=== PATIENT | female | born 1940 | race Caucasian/White ===

== ENCOUNTER 2017-02-12 13:35 | Emergency (ER) | payer OTHER ==
[2017-02-12 14:48] VITALS: BP 122/63; PULSE 73; TEMP 97.9; BMI 27.4
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
== END 2017-02-12 15:19 | disposition home or self-care (01) ==
LOC: FER 13:35 → EDBD 13:35 → FER 15:19
DX: Z76.0 Encounter for issue of repeat prescription (principal); I10 Essential (primary) hypertension; E11.9 Type 2 diabetes mellitus without complications; E78.00 Pure hypercholesterolemia, unspecified
CPT/HCPCS: 99281-25

== ENCOUNTER 2017-05-27 13:39 | Inpatient (IN) | payer MEDICARE, OTHER ==
[2017-05-27 13:57] VITALS: BMI 27.9
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
[2017-05-27 16:12] LABS: BASO % 0.4 % (0-2.0); EOS % 2.2 % (0-4.5); HEMATOCRIT 40.2 % (32.4-45.2); HEMOGLOBIN 13.6 GM/dL (10.7-15.3); LYMPH % 25.8 % (8-40); MCH 30.5 pg (25.7-33.7); MEAN CELL VOLUME 89.9 fl (80-96); MEAN PLT VOLUME 10.8 fl (7.5-11.1); MONO % 6.1 % (3.8-10.2); NEUT % 65.5 % (42.8-82.8); PLATELET COUNT 130 K/MM3 (134-434); RBC 4.47 M/mm3 (3.60-5.2); RDW 12.8 % (11.6-15.6); WHITE BLOOD COUNT 7.7 K/mm3 (4.0-10.0)
[2017-05-27 16:23] LABS: INR 1.06 (0.82-1.09)
[2017-05-27 16:33] LABS: ALBUMIN 3.7 g/dl (3.4-5.0); ANION GAP 8 (8-16); BILIRUBIN,TOTAL 0.5 mg/dL (0.2-1.0); BLOOD UREA NITROGEN 10 mg/dL (7-18); CALCIUM 9.1 mg/dL (8.5-10.1); CHLORIDE 107 mmol/L (98-107); CO2 27 mmol/L (21-32); CREATININE 0.6 mg/dL (0.55-1.02); GLUCOSE,RANDOM 107 mg/dL (74-106); SGOT/AST 16 U/L (15-37); SGPT/ALT 20 U/L (12-78); SODIUM 142 mmol/L (136-145); TOT PROT 7.5 g/dl (6.4-8.2)
[2017-05-27 16:41] LABS: ALK PHOS 108 U/L (45-117); N-TERMINAL BNP 2027.35 pg/ml (5-450)
[2017-05-27] MEDS ORDERED: ASPIRIN 325 MG ENTERIC COATED TABLET (FP) PO ONE (18:00)
[2017-05-27] MEDS ORDERED: ASPIRIN 81 MG CHEWABLE TABLETS PO SCH (18:00)
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
[2017-05-27] MEDS ORDERED: MECLIZINE HCL 12.5 MG TABLET PO PRN (18:17)
[2017-05-27] MEDS ORDERED: ASPIRIN 325 MG TABLET ONE (18:23)
[2017-05-27] MEDS: METOPROLOL SUCCINATE 25 MG TAB.SR.24H (FP) PO SCH (18:29)
[2017-05-27] MEDS ORDERED: APIXABAN 5 MG TABLET PO SCH (22:00)
[2017-05-27] MEDS ORDERED: ENOXAPARIN NA (PORCINE) 80 MG/0.8 ML DISP.SYRIN SQ ONE (22:11)
[2017-05-27] MEDS: ATORVASTATIN CA 10 MG TABLET (FP) PO SCH (22:25)
[2017-05-27] MEDS: ENOXAPARIN NA (PORCINE) 80 MG/0.8 ML DISP.SYRIN SQ SCH (22:25)
[2017-05-27] MEDS: INSULIN SLIDING SCALE (NOVOLOG) 1 VIAL SQ SCH (22:26)
[2017-05-28] MEDS: INSULIN SLIDING SCALE (NOVOLOG) 1 VIAL SQ SCH ×4 (06:30→21:00)
[2017-05-28 09:06] LABS: ANION GAP 10 (8-16); CALCIUM 9.3 mg/dL (8.5-10.1); CHLORIDE 105 mmol/L (98-107); CO2 27 mmol/L (21-32); SODIUM 142 mmol/L (136-145)
[2017-05-28 09:11] LABS: ALBUMIN 3.5 g/dl (3.4-5.0); ALK PHOS 100 U/L (45-117); BILIRUBIN,TOTAL 0.6 mg/dL (0.2-1.0); BLOOD UREA NITROGEN 10 mg/dL (7-18); CREATININE 0.6 mg/dL (0.55-1.02); GLUCOSE,RANDOM 114 mg/dL (74-106); PHOSPHOROUS 3.8 mg/dL (2.5-4.9); SGPT/ALT 19 U/L (12-78); TOT PROT 7.3 g/dl (6.4-8.2)
[2017-05-28 09:15] LABS: BASO % 0.8 % (0-2.0); HEMOGLOBIN 14.1 GM/dL (10.7-15.3); LYMPH % 34.1 % (8-40); MAGNESIUM 2.1 mg/dL (1.8-2.4); MCH 29.8 pg (25.7-33.7); MCHC 32.7 g/dl (32.0-36.0); MEAN CELL VOLUME 91.2 fl (80-96); MEAN PLT VOLUME 10.6 fl (7.5-11.1); MONO % 7.1 % (3.8-10.2); PLATELET COUNT 122 K/MM3 (134-434); POTASSIUM 4.1 mmol/L (3.5-5.1); RBC 4.71 M/mm3 (3.60-5.2); RDW 12.8 % (11.6-15.6); WHITE BLOOD COUNT 7.8 K/mm3 (4.0-10.0)
[2017-05-28 09:16] LABS: SGOT/AST 26 U/L (15-37)
--- NOTE | 2017-05-28 09:20 | EKG ---
Test Reason : Blood Pressure : / mmHG Vent. Rate : 106 BPM Atrial Rate : 288 BPM P-R Int : 000 ms QRS Dur : 084 ms QT Int : 346 ms P-R-T Axes : 000 027 038 degrees QTc Int : 459 ms ATRIAL FIBRILLATION WITH RAPID VENTRICULAR RESPONSE ABNORMAL ECG NO PREVIOUS ECGS AVAILABLE Confirmed by JUNIE GAMBOA, MACARENA ([id number]) on 05/28/2017 9:20:13 AM Referred By: Confirmed By:MACARENA ZAMAN MD
[2017-05-28] MEDS: ENOXAPARIN NA (PORCINE) 80 MG/0.8 ML DISP.SYRIN SQ SCH (09:34)
[2017-05-28] MEDS: METOPROLOL SUCCINATE 25 MG TAB.SR.24H (FP) PO SCH (09:34)
--- NOTE | 2017-05-28 10:41 | CONSULT ---
Admitting History and Physical - Primary Care Physician PCP: Marc Canada - Admission History of Present Illness: Per EMR: This is a 77 year old female with PMHx of NIDDM, HTN, hyperlipidemia, cardiac cath 1 year ago in [place] (no PCI per patient), cardiac arrhythmia diagnosed 1 year ago in [place], hysterectomy, hernia repair, cholecystectomy, who was sent in by branch maker for new onset a.fib with RVR. Intermittent vomiting x2 months - Possible diabetes induced gastroparesis - Patient reports it is on and off with no clear pattern. She also reports sometimes rice gets stuck in her throat - Consider CTAP if no improvement - Swallow evaluation History Source: Patient, Family Member, Medical Record Limitations to Obtaining History: Language Barrier - Smoking History Smoking history: Former smoker Have you smoked in the past 12 months: No Aproximately how many cigarettes per day: 0 If you are a former smoker, when did you quit?: many years ago - Alcohol/Substance Use Hx Alcohol Use: No History - Admission Reason For Visit: ATRIAL FIBRILATION - Diagnostics X-ray: Report Reviewed CT Scan: Report Reviewed - General Mental Status: Alert and Oriented, Awake and Alert, Able to Follow Commands Attention: Intact Ability to Follow Directions: Excellent Head/Neck Control: WFL - Hearing Hearing: Normal Hearing Aide: No With Patient: No Speech Evaluation - Communication Primary Language: LAO Communication: Yes: Simple Responses, Language Barrier Oral Expression Ability: Yes: No Impairment (Good historian) - Speech Production Able to Make Needs Known: Yes: WNL Intelligibility: Yes: WNL - Swallow Evaluation/Bedside Assessment Current Nutritional Intake: Regular, Thin Liquids Oral Secretions: Yes: WFL Dentition: Yes: Adequate Facial Symmetry at Rest: Symmetrical Facial Symmetry on Retraction: Symmetrical Facial Movement: Controlled Sensation: Normal Against Resistance Opening: Normal Against Resistance Closing: Normal Pucker Lips: Normal Smile: Normal Lingual Movement: Normal, Symmetric Lingual Speed of Movement: Normal Lingual Movement Strgth Against Opposition: Normal Lingual Movement Characteristics: Normal Velopharyngeal Movement: Normal Laryngeal Elevation: WFL Laryngeal Movement: Able to Palpate Rate of Intake: WFL Bolus Size: WFL Labial Seal: WFL Chewing: WFL Oral Prep Time: WFL A-P Transit: WFL Pocketing: None Timing of Swallow: WFL Coughing/Throat Clear: No Change in Voice: No Recommendations - Speech Evaluation, Impression/Plan Impression: Pt reports h/o difficulty eating white rice only, seemingly sticking in esophagus with vomiting resulting. She feels she can not breathe when this occurs.This started 6 months ago, and she was scheduled to see GI in [place], but came [place] the [place]. She denies progression of symptoms, or difficulty with any other food or liquid. No h/o PNA, coughing,bronchitis. Limited appetite. eats mainly cereal. 30lb weight loss in 4-5 months. IMP: Jeri-pharyngeal swallowing stages overtly intact. Voice euphonic.Esophageal Dysphagia r/o stricture,schatski's ring, impaired motility, etc Also c/o abd pain radiating to back. - Dysphagia Impressions/Plan *Silent aspiration: cannot be R/O at bedside Dysphagia Treatment Plan: Elevate HOB during feed (and for 1 hour after meals) Recommendations: GI Consult, Other (Alternate solids with liquids.) - Recommendations Diet Consistency: Regular (NO RICE) Medication Administration: Whole with water Liquids: Thin Liquids
--- NOTE | 2017-05-28 11:30 | PN ---
Progress Note, Physician Chief Complaint: CHART AND RECORDS REVIEWED PATIENT AWAKE COMFORTABLE IN ICU TELE - Current Medication List Current Medications: Active Medications Atorvastatin Calcium (Lipitor -) 10 mg PO HS [facility] Last Admin: 05/27/17 22:25 Dose: 10 mg Enoxaparin Sodium (Lovenox -) 80 mg SQ BID [facility] Last Admin: 05/28/17 09:34 Dose: 80 mg Influenza Virus Vaccine Quadrival (Flulaval Quad [id number]) 60 mcg IM .ONCE ONE Stop: 05/28/17 06:27 Insulin Aspart (Novolog Vial Sliding Scale -) 1 vial SQ ACHS [facility] PRN Reason: Protocol Last Admin: 05/28/17 06:30 Dose: Not Given Meclizine HCl (Antivert -) 12.5 mg PO BID PRN PRN Reason: VERTIGO Metoprolol Succinate (Toprol Xl -) 12.5 mg PO DAILY [facility] Last Admin: 05/28/17 09:34 Dose: 12.5 mg Pneumococcal 13-Valent Conj Vacc (Prevnar 13 Syringe -) 0.5 ml IM .ONCE ONE Stop: 05/28/17 06:28 - Objective Vital Signs: Vital Signs Temperature 97.8 F 05/28/17 10:00 Pulse Rate 83 05/28/17 10:00 Respiratory Rate 18 05/28/17 10:00 Blood Pressure 133/77 05/28/17 10:00 O2 Sat by Pulse Oximetry (%) 100 05/28/17 09:00 Constitutional: Yes: Mild Distress Eyes: Yes: WNL HENT: Yes: WNL Neck: Yes: WNL Cardiovascular: Yes: Pulse Irregular Respiratory: Yes: WNL, On Nasal O2, Poor Air Entry, SOB Gastrointestinal: Yes: WNL Genitourinary: Yes: WNL Musculoskeletal: Yes: WNL Extremities: Yes: WNL Edema: No Peripheral Pulses WNL: Yes Integumentary: Yes: WNL Wound/Incision: Yes: Clean/Dry Neurological: Yes: WNL ...Motor Strength: WNL Psychiatric: Yes: WNL Labs: CBC, BMP 05/28/17 07:00 05/28/17 07:00 INR, PTT INR 1.06 (0.82-1.09) 05/27/17 15:45 Problem List - Problems (1) Afib Code(s): I48.91 - UNSPECIFIED ATRIAL FIBRILLATION Qualifiers: Atrial fibrillation type: persistent Qualified Code(s): I48.1 - Persistent atrial fibrillation (2) Diabetes mellitus Code(s): E11.9 - TYPE 2 DIABETES MELLITUS WITHOUT COMPLICATIONS Qualifiers: Diabetes mellitus type: type 2 Diabetes mellitus complication status: with unspecified complications (3) Dizziness Code(s): R42 - DIZZINESS AND GIDDINESS (4) Elevated troponin Code(s): R74.8 - ABNORMAL LEVELS OF OTHER SERUM ENZYMES (5) Hyperlipidemia Code(s): E78.5 - HYPERLIPIDEMIA, UNSPECIFIED (6) Hypertension Code(s): I10 - ESSENTIAL (PRIMARY) HYPERTENSION Qualifiers: Hypertension type: essential hypertension Qualified Code(s): I10 - Essential (primary) hypertension Assessment/Plan TELE ICU MONITOR CARDIAC FUNCTION CARDIO/PULM EVAL IVF RATE CONTROL AC? ON ASA 02 SUPPORT
--- NOTE | 2017-05-28 13:39 | CON.CARD ---
Consult Consult Specialty:: Cardiology Referred by:: Dread Reason for Consultation:: afib - History of Present Illness Chief Complaint: sent in for af rvr History of Present Illness: She is a 77 year old female with PMHx of NIDDM, HTN, hyperlipidemia, cardiac cath 1 year ago in [place] told normal coronaries, unknown cardiac arrhythmia diagnosed 1 year ago in [place], hysterectomy, hernia repair, cholecystectomy, who was sent in by her investment banking manager in Dr Canada's office for new onset atrial fibrillation with RVR. No chest pain, sob, orthopnea, pnd or edema. Noted with minimally elevated troponin and normal CPK. No ecg changes. Echo 05/28/17: TDS mild decreased EF nl valves. - History Source History Provided By: Patient, Family Member, Medical Record - Alcohol/Substance Use Hx Alcohol Use: No - Smoking History Smoking history: Former smoker Have you smoked in the past 12 months: No Aproximately how many cigarettes per day: 0 If you are a former smoker, when did you quit?: many years ago Home Medications - Allergies Allergies/Adverse Reactions: Allergies Allergy/AdvReac Type Severity Reaction Status Date / Time aspirin Allergy palpitaions/upset Verified 05/08/15 14:17 stomach Penicillins Allergy Verified 05/27/17 13:53 - Home Medications Home Medications: Ambulatory Orders Glipizide 5 mg PO DAILY 08/16/11 Metformin HCl [Glucophage -] 500 mg PO DAILY 01/15/13 Simvastatin [Zocor -] 10 mg PO DAILY 01/15/13 Glipizide [Glucotrol -] 5 mg PO DAILY #30 tab 02/12/17 Irbesartan/Hydrochlorothiazide [Irbesartan-Hctz 300-12.5 mg Tb] 1 each PO DAILY #30 tab 02/12/17 Metformin HCl [Metformin HCl ER] 500 mg PO DAILY #30 tab 02/12/17 Simvastatin [Zocor -] 20 mg PO HS #30 tab 02/12/17 Vital Signs: Vital Signs Temperature 98.1 F 05/28/17 12:00 Pulse Rate 90 05/28/17 12:00 Respiratory Rate 19 05/28/17 12:00 Blood Pressure 121/82 05/28/17 12:00 O2 Sat by Pulse Oximetry (%) 100 05/28/17 09:00 Constitutional: Yes: No Distress, Calm Eyes: Yes: Conjunctiva Clear, EOM Intact HENT: Yes: Atraumatic, Normocephalic Neck: Yes: Supple, Trachea Midline Respiratory: Yes: CTA Bilaterally Gastrointestinal: Yes: Normal Bowel Sounds, Soft Cardiovascular: Yes: Tachycardia, Pulse Irregular JVD: No Carotid Bruit: No PMI: Non-Displaced Heart Sounds: Yes: S2 Edema: No Peripheral Pulses WNL: Yes - Other Data Labs, Other Data: CBC, BMP 05/28/17 07:00 05/28/17 07:00 INR, PTT INR 1.06 (0.82-1.09) 05/27/17 15:45 Troponin, BNP 05/27/17 05/27/17 05/28/17 15:45 21:40 04:08 Troponin I 0.08 H 0.07 H 0.07 H B-Natriuretic Peptide 2027.35 H Troponin, BNP 05/27/17 05/27/17 05/28/17 15:45 21:40 04:08 Troponin I 0.08 H 0.07 H 0.07 H B-Natriuretic Peptide 2027.35 H Imaging - Results Chest X-ray: Report Reviewed (cm delfina) EKG: Report Reviewed (af rvr nssttw changes.) Problem List - Problems (1) Afib Assessment/Plan: She has a mildly decreased EF 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 Increase metoprolol to 25 bid short acting for now, increase as tolerated by bp and hr. Stop lovenox start eliquis 5 mg bid. Code(s): I48.91 - UNSPECIFIED ATRIAL FIBRILLATION Qualifiers: Atrial fibrillation type: persistent Qualified Code(s): I48.1 - Persistent atrial fibrillation (2) Elevated troponin Assessment/Plan: This is a nonischemic pattern of troponin, and given her recent cath will treat for TIC and reassess in a few months. No need for ischemia workup at this point. ACEI when stable. Code(s): R74.8 - ABNORMAL LEVELS OF OTHER SERUM ENZYMES
[2017-05-28] MEDS ORDERED: PNEUMOC 13-VAL CONJ-DIP CRM/PF 0.5 ML DISP.SYRIN IM ONE (14:45)
[2017-05-28] MEDS: METOPROLOL TARTRATE 25 MG TABLET (FP) PO SCH ×2 (14:53→21:46)
[2017-05-28] MEDS ORDERED: FLU VACCINE QUAD 60 MCG/0.5 ML (MDV 17-18) IM ONE (15:00)
--- NOTE | 2017-05-28 15:45 | CON.PULM ---
Consult Consult Specialty:: PULMONARY Referred by:: Dr. Canada Reason for Consultation:: shortness of breath - History of Present Illness Chief Complaint: palpitations History of Present Illness: 77yo female with h/o HTN, DM, hyperlipidemia, possible cardiac arrythmia 1 year ago and cardiac catheterization with normal coronaries who was sent from the cardiology office after being found in rapid atrial fibrillation. Pt does report symptomatic palpitations with associated shortness of breath. No chest pain, nausea or diaphoresis. No recent illnesses, no fevers, chills. No sick contacts. Denies any pulmonary history, she is a never smoker, no significant 2nd hand smoke, worked in a restaurant. - History Source History Provided By: Patient, Family Member, Medical Record Limitations to Obtaining History: Language Barrier - Past Medical History Cardio/Vascular: Yes: HTN, Hyperlipdemia Endocrine: Yes: Diabetes Mellitus - Alcohol/Substance Use Hx Alcohol Use: No - Smoking History Smoking history: Former smoker Have you smoked in the past 12 months: No Aproximately how many cigarettes per day: 0 If you are a former smoker, when did you quit?: many years ago Home Medications - Allergies Allergies/Adverse Reactions: Allergies Allergy/AdvReac Type Severity Reaction Status Date / Time aspirin Allergy palpitaions/upset Verified 05/08/15 14:17 stomach Penicillins Allergy Verified 05/27/17 13:53 - Home Medications Home Medications: Ambulatory Orders Glipizide 5 mg PO DAILY 08/16/11 Metformin HCl [Glucophage -] 500 mg PO DAILY 01/15/13 Simvastatin [Zocor -] 10 mg PO DAILY 01/15/13 Glipizide [Glucotrol -] 5 mg PO DAILY #30 tab 02/12/17 Irbesartan/Hydrochlorothiazide [Irbesartan-Hctz 300-12.5 mg Tb] 1 each PO DAILY #30 tab 02/12/17 Metformin HCl [Metformin HCl ER] 500 mg PO DAILY #30 tab 02/12/17 Simvastatin [Zocor -] 20 mg PO HS #30 tab 02/12/17 Review of Systems - Review of Systems Constitutional: denies: Chills, Fever Eyes: denies: Recent Change in Vision HENT: denies: Nasal Congestion, Throat Pain Neck: denies: Stiffness, Tenderness Cardiovascular: reports: Palpitations, Shortness of Breath. denies: Chest Pain , Edema Respiratory: denies: Cough, Hemoptysis, Wheezing Gastrointestinal: denies: Abdominal Pain, Nausea, Vomiting Genitourinary: denies: Dysuria, Hematuria Neurological: denies: Dizziness, Headache Endocrine: denies: Unexplained Weight Gain, Unexplained Weight Loss Physical Exam Vital Sings: Vital Signs Temperature 98.1 F 05/28/17 12:00 Pulse Rate 90 05/28/17 12:00 Respiratory Rate 19 05/28/17 13:00 Blood Pressure 121/82 05/28/17 12:00 O2 Sat by Pulse Oximetry (%) 100 05/28/17 13:00 Constitutional: Yes: Calm Eyes: Yes: Conjunctiva Clear, EOM Intact HENT: Yes: Atraumatic, Normocephalic Neck: Yes: Supple, Trachea Midline Cardiovascular: Yes: Pulse Irregular Respiratory: Yes: Diminished (decreased breath sounds at the bases) ...Clubbing: No Gastrointestinal: Yes: Normal Bowel Sounds, Soft. No: Tenderness Neurological: Yes: Alert, Oriented Labs: CBC, BMP 05/28/17 07:00 05/28/17 07:00 Imaging - Results Chest X-ray: Report Reviewed, Image Reviewed (cardiomegaly, no infiltrates) Problem List - Problems (1) Afib Code(s): I48.91 - UNSPECIFIED ATRIAL FIBRILLATION Qualifiers: Atrial fibrillation type: persistent Qualified Code(s): I48.1 - Persistent atrial fibrillation (2) Diabetes mellitus Code(s): E11.9 - TYPE 2 DIABETES MELLITUS WITHOUT COMPLICATIONS (3) Elevated troponin Code(s): R74.8 - ABNORMAL LEVELS OF OTHER SERUM ENZYMES (4) Hyperlipidemia Code(s): E78.5 - HYPERLIPIDEMIA, UNSPECIFIED (5) Hypertension Code(s): I10 - ESSENTIAL (PRIMARY) HYPERTENSION Assessment/Plan Atrial Fibrillation HTN DM Hyperlipidemia - rate control - continue anticoagulation - f/u echocardiogram - cardiology f/u - O2 as needed Thank you for this consult Neeraj Bergman MD
[2017-05-28] MEDS ORDERED: ACETAMINOPHEN 325 MG TABLET (FP) PO ONE (17:20)
[2017-05-28] MEDS: ATORVASTATIN CA 10 MG TABLET (FP) PO SCH (21:46)
[2017-05-28] MEDS: APIXABAN 5 MG TABLET PO SCH (21:48)
[2017-05-29] MEDS: INSULIN SLIDING SCALE (NOVOLOG) 1 VIAL SQ SCH ×4 (06:20→21:57)
[2017-05-29] MEDS: APIXABAN 5 MG TABLET PO SCH ×3 (10:08→22:04)
[2017-05-29] MEDS: METOPROLOL TARTRATE 25 MG TABLET (FP) PO SCH ×2 (10:09→22:05)
--- NOTE | 2017-05-29 10:52 | PN ---
Progress Note, NON LICENSED OPERATOR - Note Progress Note: c/o Vertigo. Tolerating diet without difficulty. Esophageal dysphagia suspected. No vomiting reported. Avoid rice for now. Alternate solids with liquids to improve esophageal emptying. Selected Entries 05/29/17 05/29/17 05/29/17 02:34 05:37 10:00 Temperature 98.1 F 98.1 F 98.1 F
--- NOTE | 2017-05-29 14:16 | PN ---
Progress Note, Physician Chief Complaint: still with episodic dizziness. tele rate controlled Afib. 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 No chest pain, sob, orthopnea, pnd or edema. Noted with minimally elevated troponin and normal CPK. No ecg changes. Echo 05/28/17: TDS mild decreased EF nl valves. - Current Medication List Current Medications: Active Medications Apixaban (Eliquis -) 5 mg PO BID [facility] Last Admin: 05/29/17 12:31 Dose: 5 mg Atorvastatin Calcium (Lipitor -) 10 mg PO HS [facility] Last Admin: 05/28/17 21:46 Dose: 10 mg Insulin Aspart (Novolog Vial Sliding Scale -) 1 vial SQ ACHS [facility] PRN Reason: Protocol Last Admin: 05/29/17 11:33 Dose: Not Given Meclizine HCl (Antivert -) 12.5 mg PO BID PRN PRN Reason: VERTIGO Metoprolol Tartrate (Lopressor -) 25 mg PO BID [facility] Last Admin: 05/29/17 10:09 Dose: 25 mg - Objective Vital Signs: Vital Signs Temperature 98.3 F 05/29/17 14:00 Pulse Rate 72 05/29/17 14:00 Respiratory Rate 18 05/29/17 14:00 Blood Pressure 124/62 05/29/17 14:00 O2 Sat by Pulse Oximetry (%) 100 05/29/17 09:00 Constitutional: Yes: No Distress Eyes: Yes: Conjunctiva Clear, EOM Intact HENT: Yes: Normocephalic Neck: Yes: Trachea Midline Cardiovascular: Yes: Pulse Irregular Respiratory: Yes: Regular, CTA Bilaterally Gastrointestinal: Yes: Normal Bowel Sounds, Soft Extremities: Yes: WNL Edema: No Peripheral Pulses WNL: Yes Labs: CBC, BMP 05/28/17 07:00 05/28/17 07:00 INR, PTT INR 1.06 (0.82-1.09) 05/27/17 15:45 Problem List - Problems (1) Afib Assessment/Plan: She has a mildly decreased EF 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 Increase metoprolol to 25 bid short acting for now, increase as tolerated by bp and hr. Stop lovenox start eliquis 5 mg bid. Code(s): I48.91 - UNSPECIFIED ATRIAL FIBRILLATION Qualifiers: Atrial fibrillation type: persistent Qualified Code(s): I48.1 - Persistent atrial fibrillation (2) Elevated troponin Assessment/Plan: This is a nonischemic pattern of troponin, and given her recent cath will treat for TIC and reassess in a few months. No need for ischemia workup at this point. ACEI when stable. will see as needed. follow as outpatient. Code(s): R74.8 - ABNORMAL LEVELS OF OTHER SERUM ENZYMES
--- NOTE | 2017-05-29 15:09 | PN ---
Progress Note (short form) - Note Progress Note: No CP or SOB. Intermittent dizziness. Rate controlled AFib. Intake & Output 05/26/17 05/27/17 05/28/17 05/29/17 23:59 23:59 23:59 23:59 Intake Total 170 10 Balance 170 10 Weight 173 lb 173 lb Last Vital Signs Temp Pulse Resp BP Pulse Ox 98.3 F 72 18 124/62 100 05/29/17 14:00 05/29/17 14:00 05/29/17 14:00 05/29/17 14:00 05/29/17 09:00 Active Medications Apixaban (Eliquis -) 5 mg PO BID [facility] Last Admin: 05/29/17 12:31 Dose: 5 mg Atorvastatin Calcium (Lipitor -) 10 mg PO HS [facility] Last Admin: 05/28/17 21:46 Dose: 10 mg Insulin Aspart (Novolog Vial Sliding Scale -) 1 vial SQ ACHS [facility] PRN Reason: Protocol Last Admin: 05/29/17 11:33 Dose: Not Given Meclizine HCl (Antivert -) 12.5 mg PO BID PRN PRN Reason: VERTIGO Metoprolol Tartrate (Lopressor -) 25 mg PO BID [facility] Last Admin: 05/29/17 10:09 Dose: 25 mg Constitutional: Yes: NAD Eyes: Yes: Conjunctiva Clear, EOM Intact HENT: Yes: Atraumatic, Normocephalic Neck: Yes: Supple, Trachea Midline Cardiovascular: Yes: Pulse Irregular Respiratory: Yes: Diminished breath sounds at the bases ...Clubbing: No Gastrointestinal: Yes: Normal Bowel Sounds, Soft. No: Tenderness Neurological: Yes: Alert, Oriented Labs: Laboratory Results - last 24 hr 05/28/17 05/28/17 05/28/17 05:23 12:09 16:42 POC Glucometer 120.44911 73.91874 89.56959 05/28/17 05/29/17 20:56 06:19 POC Glucometer 150.09238 135.97587 Problem List - Problems (1) Afib Code(s): I48.91 - UNSPECIFIED ATRIAL FIBRILLATION Qualifiers: Atrial fibrillation type: persistent Qualified Code(s): I48.1 - Persistent atrial fibrillation (2) Diabetes mellitus Code(s): E11.9 - TYPE 2 DIABETES MELLITUS WITHOUT COMPLICATIONS (3) Elevated troponin Code(s): R74.8 - ABNORMAL LEVELS OF OTHER SERUM ENZYMES (4) Hyperlipidemia Code(s): E78.5 - HYPERLIPIDEMIA, UNSPECIFIED (5) Hypertension Code(s): I10 - ESSENTIAL (PRIMARY) HYPERTENSION Assessment/Plan Atrial Fibrillation HTN DM Hyperlipidemia - rate control per Cardiology - Eliquis BID - O2 as needed Dr Rao
--- NOTE | 2017-05-29 19:24 | PN ---
Progress Note, Physician Chief Complaint: AWAKE ALERT FEELING BETTER - Current Medication List Current Medications: Active Medications Apixaban (Eliquis -) 5 mg PO BID [facility] Last Admin: 05/29/17 12:31 Dose: 5 mg Atorvastatin Calcium (Lipitor -) 10 mg PO HS [facility] Last Admin: 05/28/17 21:46 Dose: 10 mg Insulin Aspart (Novolog Vial Sliding Scale -) 1 vial SQ ACHS [facility] PRN Reason: Protocol Last Admin: 05/29/17 16:52 Dose: Not Given Meclizine HCl (Antivert -) 12.5 mg PO BID PRN PRN Reason: VERTIGO Metoprolol Tartrate (Lopressor -) 25 mg PO BID [facility] Last Admin: 05/29/17 10:09 Dose: 25 mg - Objective Vital Signs: Vital Signs Temperature 98.3 F 05/29/17 14:00 Pulse Rate 72 05/29/17 14:00 Respiratory Rate 18 05/29/17 14:00 Blood Pressure 124/62 05/29/17 14:00 O2 Sat by Pulse Oximetry (%) 100 05/29/17 09:00 Constitutional: Yes: Mild Distress Eyes: Yes: WNL HENT: Yes: WNL Neck: Yes: WNL Cardiovascular: Yes: Pulse Irregular Respiratory: Yes: WNL Gastrointestinal: Yes: WNL Genitourinary: Yes: WNL Musculoskeletal: Yes: WNL Extremities: Yes: WNL Edema: No Peripheral Pulses WNL: Yes Integumentary: Yes: WNL Wound/Incision: Yes: Clean/Dry Neurological: Yes: WNL ...Motor Strength: WNL Psychiatric: Yes: WNL Labs: CBC, BMP 05/28/17 07:00 05/28/17 07:00 INR, PTT INR 1.06 (0.82-1.09) 05/27/17 15:45 Problem List - Problems (1) Afib Code(s): I48.91 - UNSPECIFIED ATRIAL FIBRILLATION Qualifiers: Atrial fibrillation type: persistent Qualified Code(s): I48.1 - Persistent atrial fibrillation (2) Diabetes mellitus Code(s): E11.9 - TYPE 2 DIABETES MELLITUS WITHOUT COMPLICATIONS Qualifiers: Diabetes mellitus type: type 2 Diabetes mellitus complication status: with unspecified complications (3) Dizziness Code(s): R42 - DIZZINESS AND GIDDINESS (4) Elevated troponin Code(s): R74.8 - ABNORMAL LEVELS OF OTHER SERUM ENZYMES (5) Hyperlipidemia Code(s): E78.5 - HYPERLIPIDEMIA, UNSPECIFIED (6) Hypertension Code(s): I10 - ESSENTIAL (PRIMARY) HYPERTENSION Qualifiers: Hypertension type: essential hypertension Qualified Code(s): I10 - Essential (primary) hypertension Assessment/Plan DM STABLE AFIB CONTROLLED NO SIGNIFICANT ALARMS CONTINUE MEDS DC PLANNING AM
[2017-05-29] MEDS ORDERED: PT OWN MED DRAWER 7, Y5N ONE (22:02)
[2017-05-29] MEDS: ATORVASTATIN CA 10 MG TABLET (FP) PO SCH (22:06)
[2017-05-30] MEDS: METOPROLOL TARTRATE 25 MG TABLET (FP) PO SCH ×2 (09:29→22:13)
[2017-05-30] MEDS: APIXABAN 5 MG TABLET PO SCH ×2 (09:29→22:13)
[2017-05-30] MEDS: INSULIN SLIDING SCALE (NOVOLOG) 1 VIAL SQ SCH ×4 (09:32→22:13)
[2017-05-30] MEDS ORDERED: HEMOQUE TEST 1 EACH EACH ONE ×2 (11:50→17:14)
[2017-05-30] MEDS ORDERED: ACETAMINOPHEN 325 MG TABLET (FP) ONE (12:17)
--- NOTE | 2017-05-30 12:29 | PN ---
Progress Note (short form) - Note Progress Note: Still with dizziness and TORRES. No CP or SOB. AFib. Intake & Output 05/27/17 05/28/17 05/29/17 05/30/17 23:59 23:59 23:59 23:59 Intake Total 170 170 100 Balance 170 170 100 Weight 173 lb 173 lb Last Vital Signs Temp Pulse Resp BP Pulse Ox 98.2 F 84 18 105/77 100 05/29/17 22:00 05/30/17 12:25 05/30/17 12:25 05/30/17 12:25 05/30/17 07:31 Active Medications Apixaban (Eliquis -) 5 mg PO BID [facility] Last Admin: 05/30/17 09:29 Dose: 5 mg Atorvastatin Calcium (Lipitor -) 10 mg PO HS [facility] Last Admin: 05/29/17 22:06 Dose: 10 mg Insulin Aspart (Novolog Vial Sliding Scale -) 1 vial SQ ACHS [facility] PRN Reason: Protocol Last Admin: 05/30/17 12:16 Dose: Not Given Meclizine HCl (Antivert -) 12.5 mg PO BID PRN PRN Reason: VERTIGO Last Admin: 05/30/17 10:33 Dose: 12.5 mg Metoprolol Tartrate (Lopressor -) 25 mg PO BID [facility] Last Admin: 05/30/17 09:29 Dose: 25 mg Constitutional: Yes: NAD Eyes: Yes: Conjunctiva Clear, EOM Intact HENT: Yes: Atraumatic, Normocephalic Neck: Yes: Supple, Trachea Midline Cardiovascular: Yes: Pulse Irregular Respiratory: Yes: Diminished breath sounds at the bases ...Clubbing: No Gastrointestinal: Yes: Normal Bowel Sounds, Soft. No: Tenderness Neurological: Yes: Alert, Oriented Labs: Laboratory Results - last 24 hr 05/28/17 05/28/17 05/28/17 05:23 12:09 16:42 POC Glucometer 120.07335 73.66111 89.88131 05/29/17 05/29/17 05/30/17 16:31 21:39 06:51 POC Glucometer 178.68942 123.37649 129.22248 05/30/17 11:46 POC Glucometer 142.81913 Problem List - Problems (1) Afib Code(s): I48.91 - UNSPECIFIED ATRIAL FIBRILLATION Qualifiers: Atrial fibrillation type: persistent Qualified Code(s): I48.1 - Persistent atrial fibrillation (2) Diabetes mellitus Code(s): E11.9 - TYPE 2 DIABETES MELLITUS WITHOUT COMPLICATIONS (3) Elevated troponin Code(s): R74.8 - ABNORMAL LEVELS OF OTHER SERUM ENZYMES (4) Hyperlipidemia Code(s): E78.5 - HYPERLIPIDEMIA, UNSPECIFIED (5) Hypertension Code(s): I10 - ESSENTIAL (PRIMARY) HYPERTENSION Assessment/Plan Atrial Fibrillation HTN DM Hyperlipidemia - rate control per Cardiology - Eliquis BID - O2 as needed - Meclizine PRN Dr Rao
[2017-05-30 16:41] LABS: HEMATOCRIT 39.7 % (32.4-45.2); HEMOGLOBIN 13.5 GM/dL (10.7-15.3); MCH 30.6 pg (25.7-33.7); MEAN CELL VOLUME 90.1 fl (80-96); MEAN PLT VOLUME 11.2 fl (7.5-11.1); PLATELET COUNT 128 K/MM3 (134-434); RBC 4.41 M/mm3 (3.60-5.2); RDW 12.5 % (11.6-15.6); WHITE BLOOD COUNT 7.8 K/mm3 (4.0-10.0)
[2017-05-30 17:41] LABS: ANION GAP 3 (8-16); BLOOD UREA NITROGEN 18 mg/dL (7-18); CALCIUM 8.6 mg/dL (8.5-10.1); CHLORIDE 104 mmol/L (98-107); CO2 34 mmol/L (21-32); CREATININE 0.7 mg/dL (0.55-1.02); GLUCOSE,RANDOM 117 mg/dL (74-106); POTASSIUM 4.2 mmol/L (3.5-5.1); SODIUM 141 mmol/L (136-145)
--- NOTE | 2017-05-30 18:38 | PN ---
Progress Note, Physician Chief Complaint: AWAKE FAMILY BEDSIDE C/O ROOM SPINNING NO FALLS - Current Medication List Current Medications: Active Medications Acetaminophen (Tylenol -) 325 mg PO ONCE ONE Stop: 05/30/17 18:46 Apixaban (Eliquis -) 5 mg PO BID [facility] Last Admin: 05/30/17 09:29 Dose: 5 mg Atorvastatin Calcium (Lipitor -) 10 mg PO HS [facility] Last Admin: 05/29/17 22:06 Dose: 10 mg Insulin Aspart (Novolog Vial Sliding Scale -) 1 vial SQ ACHS [facility] PRN Reason: Protocol Last Admin: 05/30/17 17:35 Dose: Not Given Meclizine HCl (Antivert -) 12.5 mg PO BID PRN PRN Reason: VERTIGO Last Admin: 05/30/17 10:33 Dose: 12.5 mg Metoprolol Tartrate (Lopressor -) 25 mg PO BID [facility] Last Admin: 05/30/17 09:29 Dose: 25 mg - Objective Vital Signs: Vital Signs Temperature 98.5 F 05/30/17 15:01 Pulse Rate 82 05/30/17 16:00 Respiratory Rate 18 05/30/17 16:00 Blood Pressure 99/62 05/30/17 16:00 O2 Sat by Pulse Oximetry (%) 100 05/30/17 07:31 Constitutional: Yes: Mild Distress Eyes: Yes: WNL HENT: Yes: WNL Neck: Yes: WNL Cardiovascular: Yes: Pulse Irregular Respiratory: Yes: WNL Gastrointestinal: Yes: WNL Genitourinary: Yes: WNL Musculoskeletal: Yes: WNL Extremities: Yes: WNL Edema: No Peripheral Pulses WNL: Yes Integumentary: Yes: WNL Wound/Incision: Yes: Clean/Dry Neurological: Yes: WNL ...Motor Strength: WNL Psychiatric: Yes: WNL Labs: CBC, BMP 05/30/17 16:00 05/30/17 16:00 INR, PTT INR 1.06 (0.82-1.09) 05/27/17 15:45 Problem List - Problems (1) Afib Code(s): I48.91 - UNSPECIFIED ATRIAL FIBRILLATION Qualifiers: Atrial fibrillation type: persistent Qualified Code(s): I48.1 - Persistent atrial fibrillation (2) Diabetes mellitus Code(s): E11.9 - TYPE 2 DIABETES MELLITUS WITHOUT COMPLICATIONS Qualifiers: Diabetes mellitus type: type 2 Diabetes mellitus complication status: with unspecified complications (3) Dizziness Code(s): R42 - DIZZINESS AND GIDDINESS (4) Elevated troponin Code(s): R74.8 - ABNORMAL LEVELS OF OTHER SERUM ENZYMES (5) Hyperlipidemia Code(s): E78.5 - HYPERLIPIDEMIA, UNSPECIFIED (6) Hypertension Code(s): I10 - ESSENTIAL (PRIMARY) HYPERTENSION Qualifiers: Hypertension type: essential hypertension Qualified Code(s): I10 - Essential (primary) hypertension Assessment/Plan VERTIGO LIKELY NEURO EVAL MECLIZINE PRN DM STABLE AFIB CONTROLLED NO SIGNIFICANT ALARMS CONTINUE MEDS DC PLANNING AM
[2017-05-30] MEDS ORDERED: ACETAMINOPHEN 325 MG TABLET (FP) PO ONE ×2 (18:45)
[2017-05-30] MEDS: ATORVASTATIN CA 10 MG TABLET (FP) PO SCH (22:13)
[2017-05-31] MEDS ORDERED: MECLIZINE HCL 25 MG TABLET (FP) PO PRN (04:21)
[2017-05-31] MEDS: INSULIN SLIDING SCALE (NOVOLOG) 1 VIAL SQ SCH ×2 (06:20→11:52)
[2017-05-31] MEDS ORDERED: PT OWN MED DRAWER 7, Y5N ONE (08:43)
[2017-05-31] MEDS: METOPROLOL TARTRATE 25 MG TABLET (FP) PO SCH (09:54)
[2017-05-31] MEDS: APIXABAN 5 MG TABLET PO SCH (09:54)
--- NOTE | 2017-05-31 12:15 | PN ---
Progress Note (short form) - Note Progress Note: PULMONARY Still some dizziness when walking but much improved from yesterday. Last Vital Signs Temp Pulse Resp BP Pulse Ox 97.6 F 81 18 129/92 100 05/31/17 02:48 05/31/17 02:48 05/31/17 02:48 05/31/17 02:48 05/30/17 21:00 Gen: NAD at rest Heart: irregular Lung: decreased breath sounds at the bases Abd: soft, nontender Ext: no edema CBC, BMP 05/30/17 16:00 05/30/17 16:00 Active Medications Apixaban (Eliquis -) 5 mg PO BID [facility] Last Admin: 05/31/17 09:54 Dose: 5 mg Atorvastatin Calcium (Lipitor -) 10 mg PO HS [facility] Last Admin: 05/30/17 22:13 Dose: 10 mg Insulin Aspart (Novolog Vial Sliding Scale -) 1 vial SQ ACHS [facility] PRN Reason: Protocol Last Admin: 05/31/17 06:20 Dose: Not Given Meclizine HCl (Antivert -) 25 mg PO TID PRN PRN Reason: VERTIGO Last Admin: 05/31/17 09:56 Dose: 25 mg Metoprolol Tartrate (Lopressor -) 25 mg PO BID [facility] Last Admin: 05/31/17 09:54 Dose: 25 mg A/P Atrial Fibrillation HTN DM Hyperlipidemia - rate control - continue anticoagulation - O2 as needed - d/c planning Problem List - Problems (1) Afib Code(s): I48.91 - UNSPECIFIED ATRIAL FIBRILLATION Qualifiers: Atrial fibrillation type: persistent Qualified Code(s): I48.1 - Persistent atrial fibrillation (2) Diabetes mellitus Code(s): E11.9 - TYPE 2 DIABETES MELLITUS WITHOUT COMPLICATIONS Qualifiers: Diabetes mellitus type: type 2 Diabetes mellitus complication status: with unspecified complications (3) Elevated troponin Code(s): R74.8 - ABNORMAL LEVELS OF OTHER SERUM ENZYMES (4) Hyperlipidemia Code(s): E78.5 - HYPERLIPIDEMIA, UNSPECIFIED (5) Hypertension Code(s): I10 - ESSENTIAL (PRIMARY) HYPERTENSION Qualifiers: Hypertension type: essential hypertension Qualified Code(s): I10 - Essential (primary) hypertension
--- NOTE | 2017-05-31 12:54 | CON.NEURO ---
Consult - Past Medical History Cardio/Vascular: Yes: HTN, Hyperlipdemia Endocrine: Yes: Diabetes Mellitus - Alcohol/Substance Use Hx Alcohol Use: No - Smoking History Smoking history: Former smoker Have you smoked in the past 12 months: No Aproximately how many cigarettes per day: 0 If you are a former smoker, when did you quit?: many years ago Home Medications - Allergies Allergies/Adverse Reactions: Allergies Allergy/AdvReac Type Severity Reaction Status Date / Time aspirin Allergy palpitaions/upset Verified 05/08/15 14:17 stomach Penicillins Allergy Verified 05/27/17 13:53 - Home Medications Home Medications: Ambulatory Orders Glipizide 5 mg PO DAILY 08/16/11 Metformin HCl [Glucophage -] 500 mg PO DAILY 01/15/13 Simvastatin [Zocor -] 10 mg PO DAILY 01/15/13 Glipizide [Glucotrol -] 5 mg PO DAILY #30 tab 02/12/17 Irbesartan/Hydrochlorothiazide [Irbesartan-Hctz 300-12.5 mg Tb] 1 each PO DAILY #30 tab 02/12/17 Metformin HCl [Metformin HCl ER] 500 mg PO DAILY #30 tab 02/12/17 Simvastatin [Zocor -] 20 mg PO HS #30 tab 02/12/17 Physical Exam-Neuro Vital Signs: Vital Signs Temperature 97.6 F 05/31/17 02:48 Pulse Rate 81 05/31/17 02:48 Respiratory Rate 18 05/31/17 02:48 Blood Pressure 129/92 05/31/17 02:48 O2 Sat by Pulse Oximetry (%) 100 05/30/17 21:00 Labs: CBC, BMP 05/30/17 16:00 05/30/17 16:00 INR, PTT INR 1.06 (0.82-1.09) 05/27/17 15:45 Assessment/Plan cc headhace and vertigo sensation since yerday HPI 77 year old female history of DM, HTN, hlp , cardiac arrthmia . She has history of right ear hearing loss and vertigo sensation. Patient is compalining of neck pain and headahce. Today she has no headhace. She describes dizziness as spinning sensation. Specially change of head posture bring vertigo sensation. Her headhace has resolved today and vertigo sensation is normal. She denies any severe headhace today, difficulty movign arms or leg, no LOC. PMH as above Allergy to PCN FH,ROS, SH reviewed HOME MEDICATIONS: Home Medications Medication Instructions Recorded Glipizide [Glucotrol -] 5 mg PO DAILY #30 tab 02/12/17 Irbesartan/Hydrochlorothiazide 1 each PO DAILY #30 tab 02/12/17 [Irbesartan-Hctz 300-12.5 mg Tb] Metformin HCl [Metformin HCl ER] 500 mg PO DAILY #30 tab 02/12/17 Simvastatin [Zocor -] 20 mg PO HS #30 tab 02/12/17 R Neurological Examination Alert oriented x 3, able to follow command CN eomi, no nystagmuys , pupils is reactive Moving all extremity sensation is normal ct head done on may 27 Assessment /plan 1. Headhace is most lilkely Cervicogenic/tension heahdace given she is on elaquis , I would do ct head to rule out any bleed, clincially less likely. If headhace comes back , she can be treated with neck exercise and tylenol prn 2. Vertigo wtih righ tsided hearing loss, It could be Inner ear related. I suggested to do mri as outpatient . She can be treated with meclizine and PT for vestibualr exercises Thanks for consult Yair French MD
--- NOTE | 2017-05-31 13:57 | DS ---
Physical Examination Vital Signs: Vital Signs Temperature 97.6 F 05/31/17 02:48 Pulse Rate 81 05/31/17 02:48 Respiratory Rate 18 05/31/17 02:48 Blood Pressure 129/92 05/31/17 02:48 O2 Sat by Pulse Oximetry (%) 100 05/30/17 21:00 Constitutional: Yes: No Distress Eyes: Yes: WNL HENT: Yes: WNL, Other Cardiovascular: Yes: Pulse Irregular Respiratory: Yes: WNL Gastrointestinal: Yes: WNL Renal/: Yes: WNL Musculoskeletal: Yes: WNL Extremities: Yes: WNL Edema: No Peripheral Pulses WNL: Yes Integumentary: Yes: WNL Wound/Incision: Yes: Clean/Dry Neurological: Yes: WNL ...Motor Strength: WNL Psychiatric: Yes: WNL Labs: CBC, BMP 05/30/17 16:00 05/30/17 16:00 Discharge Summary Reason For Visit: ATRIAL FIBRILATION Current Active Problems Afib (Acute) Diabetes mellitus (Acute) Dizziness (Acute) Elevated troponin (Acute) Hyperlipidemia (Acute) Hypertension (Acute) Intermittent vomiting (Acute) Procedures: Principal: CT BRAIN Hospital Course: ADMITTED TO ICU/TELE FOR ACUTE AFIB AND DIZZINESS, VOMITING. PATIENT TREATED WITH RATE CONTROL, AND VERTIGO MEDS. WORKUP BY CARDIOLOGY, PULM, NEURO ON GOING OUTPATINET WILL NEED MRI VESTIBULAR CANAL FOR VERTIGO. Condition: Improved - Instructions Diet, Activity, Other Instructions: LOW SALT SEE DR HERNANDEZ FRIDAY MORNING Referrals: Arnol Hernandez MD [Primary Care Provider] - Disposition: VNS/HOME HEALTH CARE - Home Medications Comprehensive Discharge Medication List: Ambulatory Orders Glipizide 5 mg PO DAILY 08/16/11 Metformin HCl [Glucophage -] 500 mg PO DAILY 01/15/13 Simvastatin [Zocor -] 10 mg PO DAILY 01/15/13 Glipizide [Glucotrol -] 5 mg PO DAILY #30 tab 02/12/17 Irbesartan/Hydrochlorothiazide [Irbesartan-Hctz 300-12.5 mg Tb] 1 each PO DAILY #30 tab 02/12/17 Metformin HCl [Metformin HCl ER] 500 mg PO DAILY #30 tab 02/12/17 Simvastatin [Zocor -] 20 mg PO HS #30 tab 02/12/17
[2017-05-31 14:19] VITALS: BP 130/78; PULSE 84; TEMP 98.6
== END 2017-05-31 15:08 | disposition home health service (06) | DRG 310 ==
LOC: JER 13:39 → JERBED 17:01 → J2W 05-28 04:47 → OBSVTOIN 05-28 08:27
PROVIDERS: ADMIT Family Medicine; ATTEND Family Medicine
DX: I48.1 Persistent atrial fibrillation (principal); E11.9 Type 2 diabetes mellitus without complications; E78.5 Hyperlipidemia, unspecified; I42.8 Other cardiomyopathies; I10 Essential (primary) hypertension; R74.8 Abnormal levels of other serum enzymes; R42 Dizziness and giddiness; H91.8X1 Other specified hearing loss, right ear; G44.209 Tension-type headache, unspecified, not intractable; Z87.891 Personal history of nicotine dependence
CPT/HCPCS: 36415; 70450-TC; 71045-TC; 80048; 80053; 82550; 82962; 83735; 83880; 84100; 84443; 84484; 85025; 85027; 85610; 86850; 86900; 86901; 90670; 90688; 93005; 93010; 93306-TC; 99285-25; G0378

== ENCOUNTER 2019-03-24 13:14 | Emergency (ER) | payer OTHER ==
[2019-03-24 13:37] VITALS: BP 155/83; PULSE 74; TEMP 97.9; BMI 27.3
--- NOTE | 2019-03-24 13:37 | PDOC ---
Rapid Medical Evaluation Time Seen by Provider: 03/24/19 13:33 Medical Evaluation: Allergies Allergy/AdvReac Type Severity Reaction Status Date / Time aspirin Allergy palpitaions/upset Verified 05/08/15 14:17 stomach Penicillins Allergy Verified 05/27/17 13:53 03/24/19 13:34 CC: left wrist pain s/p twisting injury PE: Decreased ROM with flexion and extension of left wrist. No deformity/bony tenderness Orders: xray Patient will proceed to ER for continued evaluation. Discharge Disposition - Diagnosis Wrist pain - Referrals - Patient Instructions - Post Discharge Activity
[2019-03-24] MEDS ORDERED: ACETAMINOPHEN 325 MG TABLET (FP) PO ONE (14:00)
--- NOTE | 2019-03-24 14:00 | PDOC ---
History of Present Illness - General Chief Complaint: Injury Stated Complaint: LT. HAND PAIN Time Seen by Provider: 03/24/19 13:33 History Source: Patient - History of Present Illness Occurred: reports: yesterday Severity: reports: severe Upper Extremity Pain Location: left: wrist Past History - Past Medical History Allergies/Adverse Reactions: Allergies Allergy/AdvReac Type Severity Reaction Status Date / Time aspirin Allergy palpitaions/upset Verified 03/24/19 13:37 stomach Penicillins Allergy Verified 03/24/19 13:37 Home Medications: Ambulatory Orders Glipizide 5 mg PO DAILY 08/16/11 Simvastatin [Zocor -] 10 mg PO DAILY 01/15/13 Glipizide [Glucotrol -] 5 mg PO DAILY #30 tab 02/12/17 Irbesartan/Hydrochlorothiazide [Irbesartan-Hctz 300-12.5 mg Tb] 1 each PO DAILY #30 tab 02/12/17 Metformin HCl [Metformin HCl ER] 500 mg PO DAILY #30 tab 02/12/17 Simvastatin [Zocor -] 20 mg PO HS #30 tab 02/12/17 Apixaban [Eliquis -] 5 mg PO BID #60 tablet 05/31/17 Meclizine HCl [Antivert -] 25 mg PO TID PRN #60 tablet 05/31/17 Metoprolol Tartrate [Lopressor -] 25 mg PO BID #60 tablet 05/31/17 Acetaminophen [Tylenol -] 1,000 mg PO Q6H #30 tablet 03/24/19 Anemia: No Asthma: No Cancer: No Cardiac Disorders: Yes (AFIB) CVA: No COPD: No CHF: No Dementia: No Diabetes: Yes GI Disorders: No Disorders: No HTN: Yes Hypercholesterolemia: Yes Liver Disease: No Seizures: No Thyroid Disease: No - Surgical History Abdominal Surgery: Yes (HERNIA) Appendectomy: Yes Cardiac Surgery: No Cholecystectomy: Yes Lung Surgery: No Neurologic Surgery: No Orthopedic Surgery: Yes ((L)KNEE SX) - Psycho Social/Smoking Cessation Hx Smoking Status: No Smoking History: Never smoked Have you smoked in the past 12 months: No Number of Cigarettes Smoked Daily: 0 If you are a former smoker, when did you quit?: many years ago Hx Alcohol Use: No Drug/Substance Use Hx: No Substance Use Type: None Review of Systems - Review of Systems Constitutional: No: Chills, Fever Musculoskeletal: Yes: Joint Pain, Joint Swelling Neurological: No: Numbness, Tingling, Weakness *Physical Exam - Vital Signs Last Vital Signs Temp Pulse Resp BP Pulse Ox 97.9 F 74 17 155/83 99 03/24/19 13:35 03/24/19 13:35 03/24/19 13:35 03/24/19 13:35 03/24/19 13:35 - Physical Exam General Appearance: Yes: Appropriately Dressed, Mild Distress HEENT: positive: Normal Voice Neck: positive: Supple Respiratory/Chest: negative: Respiratory Distress Extremity: positive: Swelling (minimal swelling w/ sig ttp diffusely to dorsal aspect of L wrist, c/o severe pain w/ ROM, no hot, red joint) Integumentary: positive: Dry, Warm Neurologic: positive: Fully Oriented, Alert, Normal Mood/Affect Medical Decision Making - Medical Decision Making 03/24/19 13:57 79-year-old female history of HTN, HLD, afib on AC, DM, here w/ severe L wrist pain that started last night. Denies any trauma. Pain achy in nature, 1o/10 and worse w/ movement. No fever or chills. No history of similar episode. No history of gout see exam Atraumatic wrist pain Possible MSK, i.e arthritis vs nonspecific inflammation, no h/o gout, no hot, red joint to suspect infxn -pain control -XR given degree of pain 03/24/19 14:15 XR w/ arthritic changes, nof x/and has her own wrist brace in place. Will DC with Tylenol and PMD follow-up Discharge - Discharge Information Problems reviewed: Yes Clinical Impression/Diagnosis: Wrist pain Qualifiers: Laterality: left Qualified Code(s): M25.532 - Pain in left wrist Condition: Good Disposition: HOME - Additional Discharge Information Prescriptions: Acetaminophen [Tylenol -] 1,000 mg PO Q6H #30 tablet - Follow up/Referral - Patient Discharge Instructions Patient Printed Discharge Instructions: DI for Wrist Pain Additional Instructions: X-ray shows arthritis and no fracture Take Tylenol for pain as directed and use wrist brace for comfort Please follow-up with your PMD for further evaluation - Post Discharge Activity
[2019-03-24] MEDS ORDERED: ACETAMINOPHEN 325 MG TABLET (FP) ONE (14:15)
== END 2019-03-24 14:44 | disposition home or self-care (01) ==
LOC: JERFT 13:14
DX: M13.832 Other specified arthritis, left wrist (principal); I10 Essential (primary) hypertension; E78.00 Pure hypercholesterolemia, unspecified; E11.9 Type 2 diabetes mellitus without complications; Z79.84 Long term (current) use of oral hypoglycemic drugs; I48.91 Unspecified atrial fibrillation; Z79.01 Long term (current) use of anticoagulants; Z88.0 Allergy status to penicillin; Z88.6 Allergy status to analgesic agent
CPT/HCPCS: 73110-TC-LT-FY; 73130-TC-LT-FY; 99281-25

== ENCOUNTER 2021-02-03 12:38 | Inpatient (IN) | payer OTHER ==
[2021-02-03] MEDS ORDERED: SODIUM CHLORIDE 0.9% 500 ML INFUS.BAG IV ONE ×2 (13:43→15:15)
[2021-02-03 14:24] LABS: ALBUMIN 4.4 g/dl (3.4-5.0); BILIRUBIN,TOTAL 1.3 mg/dl (0.2-1); CREATININE 1.1 mg/dl (0.55-1.3); MAGNESIUM 1.7 mg/dL (1.8-2.4); TOT PROT 8.2 g/dl (6.4-8.2)
[2021-02-03 14:30] LABS: BASO % 1.4 % (0-2.0); EOS % 0.3 % (0-4.5); HEMOGLOBIN 14.7 GM/dl (10.7-15.3); LYMPH % 8.5 % (8-40); MCH 29.5 pg (25.7-33.7); MCHC 33.4 g/dl (32.0-36.0); MEAN CELL VOLUME 88.3 fl (80-96); MEAN PLT VOLUME 10.9 fl (7.5-11.1); MONO % 5.9 % (3.8-10.2); NEUT % 83.9 % (42.8-82.8); PLATELET COUNT 113 10^3/uL (134-434); RBC 4.98 M/mm3 (3.60-5.2); RDW 12.5 % (11.6-15.6); WHITE BLOOD COUNT 10.8 K/mm3 (4.0-10.8)
[2021-02-03 14:35] LABS: EPITHELIAL CELLS MODERATE /hpf
[2021-02-03] MEDS ORDERED: PATIENT'S OWN MEDICATION (NON-FORMULARY) (Meloxicam [Meloxicam] 15 MG Tablet) PO PRN (20:36)
[2021-02-03] MEDS ORDERED: MECLIZINE HCL 25 MG TABLET (FP) PO PRN (20:36)
[2021-02-03] MEDS: APIXABAN 5 MG TABLET PO SCH (21:19)
[2021-02-03] MEDS: INSULIN SLIDING SCALE (NOVOLOG) 1 VIAL SQ SCH (21:56)
[2021-02-03] MEDS: LOSARTAN POTASSIUM 50 MG TABLET PO SCH (23:37)
[2021-02-04] MEDS ORDERED: MAGNESIUM 1GM/D5W - 1 GM/100 ML IVPB IVPB ONE (01:00)
[2021-02-04 02:49] LABS: CALCIUM 13.6 mg/dL (8.5-10.1)
[2021-02-04 02:50] LABS: BLOOD UREA NITROGEN 14.8 mg/dL (7-18)
[2021-02-04] MEDS ORDERED: ONDANSETRON 4 MG/2 ML VIAL IVPUSH PRN (03:53)
[2021-02-04] MEDS ORDERED: hydrALAZINE HCL 20 MG/ML VIAL IVPUSH ONE (04:38)
[2021-02-04] MEDS: INSULIN SLIDING SCALE (NOVOLOG) 1 VIAL SQ SCH ×3 (07:02→21:52)
[2021-02-04 09:44] LABS: BASO % 2.6 % (0-2.0); HEMATOCRIT 39.4 % (32.4-45.2); HEMOGLOBIN 13.4 GM/dl (10.7-15.3); LYMPH % 19.8 % (8-40); MCH 30.3 pg (25.7-33.7); MCHC 34.2 g/dl (32.0-36.0); MEAN CELL VOLUME 88.7 fl (80-96); MEAN PLT VOLUME 10.5 fl (7.5-11.1); MONO % 8.9 % (3.8-10.2); NEUT % 67.7 % (42.8-82.8); PLATELET COUNT 95 10^3/uL (134-434); RBC 4.44 M/mm3 (3.60-5.2); RDW 12.2 % (11.6-15.6); WHITE BLOOD COUNT 8.9 K/mm3 (4.0-10.8)
[2021-02-04] MEDS ORDERED: METOPROLOL TARTRATE 50 MG TABLET (FP) PO SCH (10:00)
[2021-02-04] MEDS ORDERED: LOSARTAN POTASSIUM 50 MG TABLET PO SCH (10:00)
[2021-02-04 10:08] LABS: ACTIVATED PTT 30.5 SECONDS (25.2-36.5)
[2021-02-04 10:12] LABS: INR 1.33 (0.82-1.09); PROTHROMBIN TIME (PATIENT) 14.9 SEC (10.2-13.0)
[2021-02-04] MEDS: LOSARTAN POTASSIUM 50 MG TABLET PO SCH (10:25)
[2021-02-04] MEDS: APIXABAN 5 MG TABLET PO SCH ×2 (10:25→21:49)
[2021-02-04 10:33] LABS: ALBUMIN 3.9 g/dl (3.4-5.0); BILIRUBIN,TOTAL 1.5 mg/dl (0.2-1); CALCIUM 13.7 mg/dl (8.5-10); MAGNESIUM 1.9 mg/dL (1.8-2.4); TOT PROT 7.1 g/dl (6.4-8.2)
[2021-02-04] MEDS: POTASSIUM CHLORIDE TABS 20 MEQ TABLET.ER (FP) PO SCH ×2 (11:40→18:00)
[2021-02-04] MEDS ORDERED: SODIUM CHLORIDE 1,000 ML IV SCH ×2 (12:30→16:46)
[2021-02-04] MEDS: amLODIPine BESYLATE 5 MG TABLET (FP) PO SCH (14:20)
[2021-02-04] MEDS ORDERED: SODIUM CHLORIDE 1,000 ML IV STA (16:46)
[2021-02-04] MEDS: CALCITONIN - SALMON SYNTHETIC 400 UNIT/2 ML VIAL IM SCH (18:00)
[2021-02-04] MEDS: ACETAMINOPHEN 325 MG TABLET (FP) PO PRN (21:49)
[2021-02-05] MEDS ORDERED: REFRIGERATED ANITBIOTICS ONE ×2 (06:25→06:30)
[2021-02-05] MEDS: CALCITONIN - SALMON SYNTHETIC 400 UNIT/2 ML VIAL IM SCH (06:40)
[2021-02-05] MEDS: INSULIN SLIDING SCALE (NOVOLOG) 1 VIAL SQ SCH ×4 (06:40→21:55)
[2021-02-05 08:02] LABS: ALBUMIN 3.7 g/dl (3.4-5.0); BILIRUBIN,TOTAL 1.2 mg/dl (0.2-1); CALCIUM 10.7 mg/dl (8.5-10); CREATININE 0.9 mg/dl (0.55-1.3); MAGNESIUM 1.4 mg/dL (1.8-2.4); TOT PROT 6.7 g/dl (6.4-8.2)
[2021-02-05] MEDS ORDERED: MAGNESIUM SULF 50% (8.12 MEQ/2 ML-1 GM VIAL) IVPB ONE (10:07)
[2021-02-05] MEDS: LOSARTAN POTASSIUM 50 MG TABLET PO SCH (10:14)
[2021-02-05] MEDS: amLODIPine BESYLATE 5 MG TABLET (FP) PO SCH (10:14)
[2021-02-05] MEDS: APIXABAN 5 MG TABLET PO SCH ×2 (10:15→21:52)
[2021-02-05] MEDS: SODIUM CHLORIDE 1,000 ML IV SCH (10:30)
[2021-02-05 18:01] VITALS: BMI 26.9
[2021-02-05] MEDS: ACETAMINOPHEN 325 MG TABLET (FP) PO PRN (21:52)
[2021-02-06] MEDS: INSULIN SLIDING SCALE (NOVOLOG) 1 VIAL SQ SCH ×4 (06:59→21:54)
[2021-02-06 08:49] LABS: BASO % 3.6 % (0-2.0); EOS % 1.4 % (0-4.5); HEMATOCRIT 40.7 % (32.4-45.2); HEMOGLOBIN 13.8 GM/dl (10.7-15.3); LYMPH % 13.1 % (8-40); MCH 29.9 pg (25.7-33.7); MCHC 33.9 g/dl (32.0-36.0); MEAN CELL VOLUME 88.2 fl (80-96); MEAN PLT VOLUME 10.3 fl (7.5-11.1); MONO % 8.3 % (3.8-10.2); NEUT % 73.6 % (42.8-82.8); PLATELET COUNT 96 10^3/uL (134-434); RBC 4.62 M/mm3 (3.60-5.2); RDW 12.3 % (11.6-15.6); WHITE BLOOD COUNT 9.6 K/mm3 (4.0-10.8)
[2021-02-06 09:03] LABS: BILIRUBIN,DIRECT 0.2 mg/dL (0.0-0.2); BILIRUBIN,TOTAL 1.2 mg/dl (0.2-1); MAGNESIUM 1.4 mg/dL (1.8-2.4); TOT PROT 7.4 g/dl (6.4-8.2)
[2021-02-06] MEDS ORDERED: MAGNESIUM SULF 50% (8.12 MEQ/2 ML-1 GM VIAL) IVPB ONE (10:05)
[2021-02-06] MEDS ORDERED: MAGNESIUM SULFATE IN WATER 2 GM/50 ML IVPB IVPB ONE (10:15)
[2021-02-06] MEDS ORDERED: amLODIPine BESYLATE 5 MG TABLET (FP) PO SCH (10:15)
[2021-02-06] MEDS: amLODIPine BESYLATE 10 MG TABLET (FP) PO SCH (10:19)
[2021-02-06] MEDS: LOSARTAN POTASSIUM 50 MG TABLET PO SCH (10:19)
[2021-02-06] MEDS: APIXABAN 5 MG TABLET PO SCH ×2 (10:19→21:08)
[2021-02-06] MEDS: SODIUM CHLORIDE 1,000 ML IV SCH (10:19)
[2021-02-06] MEDS: amLODIPine BESYLATE 5 MG TABLET (FP) PO SCH (10:20)
[2021-02-06] MEDS: ACETAMINOPHEN 325 MG TABLET (FP) PO PRN ×2 (15:33→21:08)
[2021-02-06 18:07] LABS: FREE KAPPA,SERUM 133.3 mg/L (3.3-19.4)
[2021-02-07] MEDS: INSULIN SLIDING SCALE (NOVOLOG) 1 VIAL SQ SCH ×3 (06:55→16:48)
[2021-02-07 08:59] LABS: CALCIUM 10.8 mg/dl (8.5-10); CREATININE 0.8 mg/dl (0.55-1.3); MAGNESIUM 1.4 mg/dL (1.8-2.4)
[2021-02-07] MEDS ORDERED: POTASSIUM CHLORIDE TABS 20 MEQ TABLET.ER (FP) PO ONE (09:20)
[2021-02-07] MEDS ORDERED: MAGNESIUM SULF 50% (8.12 MEQ/2 ML-1 GM VIAL) IVPB ONE (09:20)
[2021-02-07] MEDS ORDERED: MAGNESIUM SULFATE IN WATER 2 GM/50 ML IVPB IVPB ONE (09:30)
[2021-02-07] MEDS: LOSARTAN POTASSIUM 50 MG TABLET PO SCH (10:03)
[2021-02-07] MEDS: APIXABAN 5 MG TABLET PO SCH (10:03)
[2021-02-07] MEDS: amLODIPine BESYLATE 10 MG TABLET (FP) PO SCH (10:03)
[2021-02-07] MEDS: KCL 10 MEQ IVPB 10 MEQ/100 ML INFUS.BAG IVPB SCH ×3 (10:03→12:59)
[2021-02-07] MEDS: SODIUM CHLORIDE 1,000 ML IV SCH (10:04)
[2021-02-07] MEDS ORDERED: HEPARIN NA (PORCINE) 5,000 UNITS/ML 1ML VIAL IVPUSH PRN ×2 (18:05)
[2021-02-08] MEDS: HEPARIN INFUSION - 25,000 UNITS/500 ML INFUS.BAG IVPB SCH (00:16)
[2021-02-08 08:09] LABS: IGA IMMUNOGLOBULIN 434 mg/dL (64-422); IGG QN IMMUNOGLOBULIN 1640 mg/dL (586-1602); IGM QN SERUM 98 mg/dL (26-217)
[2021-02-08 08:14] LABS: BASO % 4.9 % (0-2.0); EOS % 1.4 % (0-4.5); HEMATOCRIT 36.9 % (32.4-45.2); HEMOGLOBIN 12.7 GM/dl (10.7-15.3); LYMPH % 18.6 % (8-40); MCH 29.9 pg (25.7-33.7); MCHC 34.4 g/dl (32.0-36.0); MEAN CELL VOLUME 87.1 fl (80-96); MEAN PLT VOLUME 10.8 fl (7.5-11.1); NEUT % 69.1 % (42.8-82.8); PLATELET COUNT 94 10^3/uL (134-434); RBC 4.24 M/mm3 (3.60-5.2); RDW 12.1 % (11.6-15.6); WHITE BLOOD COUNT 8.4 K/mm3 (4.0-10.8)
[2021-02-08 08:16] LABS: ALBUMIN 3.6 g/dl (3.4-5.0); BILIRUBIN,TOTAL 0.8 mg/dl (0.2-1); CALCIUM 10.8 mg/dl (8.5-10); TOT PROT 6.8 g/dl (6.4-8.2)
[2021-02-08 08:30] LABS: CREATININE 0.8 mg/dl (0.55-1.3)
[2021-02-08 08:31] LABS: MAGNESIUM 1.4 mg/dL (1.8-2.4)
[2021-02-08] MEDS ORDERED: MAGNESIUM SULF 50% (8.12 MEQ/2 ML-1 GM VIAL) IVPB ONE (08:33)
[2021-02-08] MEDS: POTASSIUM CHLORIDE TABS 20 MEQ TABLET.ER (FP) PO SCH ×2 (08:54→15:27)
[2021-02-08] MEDS ORDERED: MAGNESIUM SULFATE IN WATER 2 GM/50 ML IVPB IVPB ONE (09:00)
[2021-02-08] MEDS: amLODIPine BESYLATE 10 MG TABLET (FP) PO SCH (09:03)
[2021-02-08] MEDS: LOSARTAN POTASSIUM 50 MG TABLET PO SCH (09:03)
[2021-02-08] MEDS: SODIUM CHLORIDE 1,000 ML IV SCH (09:05)
[2021-02-08 09:41] LABS: INR 1.4 (0.82-1.09); PROTHROMBIN TIME (PATIENT) 15.7 SEC (10.2-13.0)
[2021-02-08] MEDS: INSULIN SLIDING SCALE (NOVOLOG) 1 VIAL SQ SCH ×4 (11:14→21:44)
[2021-02-09] MEDS: HEPARIN INFUSION - 25,000 UNITS/500 ML INFUS.BAG IVPB SCH (00:15)
[2021-02-09] MEDS: INSULIN SLIDING SCALE (NOVOLOG) 1 VIAL SQ SCH ×4 (06:31→21:11)
[2021-02-09 08:23] LABS: HEMATOCRIT 37.1 % (32.4-45.2); HEMOGLOBIN 12.3 GM/dl (10.7-15.3); MCH 28.9 pg (25.7-33.7); MCHC 33.3 g/dl (32.0-36.0); MEAN CELL VOLUME 86.7 fl (80-96); MEAN PLT VOLUME 10.3 fl (7.5-11.1); PLATELET COUNT 98 10^3/uL (134-434); RBC 4.27 M/mm3 (3.60-5.2); RDW 12.2 % (11.6-15.6); WHITE BLOOD COUNT 7.9 K/mm3 (4.0-10.8)
[2021-02-09] MEDS: amLODIPine BESYLATE 10 MG TABLET (FP) PO SCH (09:24)
[2021-02-09] MEDS: LOSARTAN POTASSIUM 50 MG TABLET PO SCH (09:24)
[2021-02-09] MEDS: SODIUM CHLORIDE 1,000 ML IV SCH (09:25)
[2021-02-09 10:57] LABS: ALBUMIN 3.7 g/dl (3.4-5.0); CREATININE 0.7 mg/dl (0.55-1.3); MAGNESIUM 1.3 mg/dL (1.8-2.4); TOT PROT 6.8 g/dl (6.4-8.2)
[2021-02-09] MEDS ORDERED: MAGNESIUM SULF 50% (8.12 MEQ/2 ML-1 GM VIAL) IVPB ONE (11:06)
[2021-02-09] MEDS ORDERED: MAGNESIUM SULFATE IN WATER 2 GM/50 ML IVPB IVPB ONE (11:30)
[2021-02-09] MEDS: ACETAMINOPHEN 325 MG TABLET (FP) PO PRN (22:59)
[2021-02-10] MEDS: INSULIN SLIDING SCALE (NOVOLOG) 1 VIAL SQ SCH ×4 (07:29→21:18)
[2021-02-10] MEDS: HEPARIN INFUSION - 25,000 UNITS/500 ML INFUS.BAG IVPB SCH (07:32)
[2021-02-10 09:33] LABS: ALBUMIN 3.7 g/dl (3.4-5.0); CALCIUM 11.4 mg/dl (8.5-10); CREATININE 0.7 mg/dl (0.55-1.3); MAGNESIUM 1.5 mg/dL (1.8-2.4); TOT PROT 6.8 g/dl (6.4-8.2)
[2021-02-10] MEDS: LOSARTAN POTASSIUM 50 MG TABLET PO SCH (09:40)
[2021-02-10] MEDS: amLODIPine BESYLATE 10 MG TABLET (FP) PO SCH (09:41)
[2021-02-10] MEDS: SODIUM CHLORIDE 1,000 ML IV SCH (09:42)
[2021-02-10 10:49] LABS: HEMATOCRIT 36.3 % (32.4-45.2); HEMOGLOBIN 12.5 GM/dL (10.7-15.3); MCH 29.9 pg (25.7-33.7); MCHC 34.4 g/dl (32.0-36.0); MEAN PLT VOLUME 12.1 fl (7.5-11.1); PLATELET COUNT 98 10^3/uL (134-434); RBC 4.17 M/mm3 (3.60-5.2); RDW 13.1 % (11.6-15.6); WHITE BLOOD COUNT 7.5 K/mm3 (4.0-10.0)
[2021-02-11] MEDS: INSULIN SLIDING SCALE (NOVOLOG) 1 VIAL SQ SCH ×4 (06:54→23:27)
[2021-02-11] MEDS: HEPARIN INFUSION - 25,000 UNITS/500 ML INFUS.BAG IVPB SCH ×2 (07:15→07:16)
[2021-02-11] MEDS ORDERED: MAGNESIUM 2GM/50ML STERILE WATER IVPB IVPB ONE (09:00)
[2021-02-11] MEDS: amLODIPine BESYLATE 10 MG TABLET (FP) PO SCH (09:39)
[2021-02-11] MEDS: LOSARTAN POTASSIUM 50 MG TABLET PO SCH (09:40)
[2021-02-11 10:29] LABS: HEMATOCRIT 31.8 % (32.4-45.2); MCH 30.2 pg (25.7-33.7); MCHC 34.7 g/dl (32.0-36.0); MEAN PLT VOLUME 11.9 fl (7.5-11.1); PLATELET COUNT 95 10^3/uL (134-434); RBC 3.65 M/mm3 (3.60-5.2); RDW 13.1 % (11.6-15.6); WHITE BLOOD COUNT 6.5 K/mm3 (4.0-10.0)
[2021-02-11] MEDS: SODIUM CHLORIDE 1,000 ML IV SCH (12:00)
[2021-02-12] MEDS: INSULIN SLIDING SCALE (NOVOLOG) 1 VIAL SQ SCH ×4 (06:27→22:00)
[2021-02-12 08:16] LABS: ALBUMIN 3.5 g/dl (3.4-5.0); CALCIUM 12.7 mg/dl (8.5-10); CREATININE 0.8 mg/dl (0.55-1.3); TOT PROT 6.6 g/dl (6.4-8.2)
[2021-02-12 09:37] LABS: HEMOGLOBIN 12.5 GM/dL (10.7-15.3); MCH 29.9 pg (25.7-33.7); MCHC 34.8 g/dl (32.0-36.0); MEAN PLT VOLUME 11.8 fl (7.5-11.1); PLATELET COUNT 117 10^3/uL (134-434); RBC 4.19 M/mm3 (3.60-5.2); RDW 13.2 % (11.6-15.6); WHITE BLOOD COUNT 7.4 K/mm3 (4.0-10.0)
[2021-02-12] MEDS: LOSARTAN POTASSIUM 50 MG TABLET PO SCH (10:04)
[2021-02-12] MEDS: SODIUM CHLORIDE 1,000 ML IV SCH (10:05)
[2021-02-12] MEDS: amLODIPine BESYLATE 10 MG TABLET (FP) PO SCH (10:05)
[2021-02-12] MEDS ORDERED: POTASSIUM CHLORIDE TABS 20 MEQ TABLET.ER (FP) PO ONE ×2 (10:15→16:00)
[2021-02-12] MEDS ORDERED: MAGNESIUM SULF 50% (8.12 MEQ/2 ML-1 GM VIAL) IVPB ONE (11:57)
[2021-02-12] MEDS ORDERED: SODIUM CHLORIDE 1,000 ML with POTASSIUM CHLORIDE 10 MEQ IV SCH (12:07)
[2021-02-12] MEDS ORDERED: MAGNESIUM SULFATE IN WATER 2 GM/50 ML IVPB IVPB ONE (12:15)
[2021-02-12] MEDS ORDERED: SODIUM CHLORIDE 500 ML IV ONE (14:30)
[2021-02-12] MEDS ORDERED: ZOLEDRONIC ACID 4 MG in SODIUM CHLORIDE 100 ML IVPB ONE (16:00)
[2021-02-12] MEDS: POTASSIUM CHLORIDE 10 MEQ in SODIUM CHLORIDE 1,000 ML IV SCH (20:41)
[2021-02-12] MEDS: ACETAMINOPHEN 325 MG TABLET (FP) PO PRN (22:20)
[2021-02-12] MEDS ORDERED: ACETAMINOPHEN 325 MG TABLET (FP) ONE (22:20)
[2021-02-13] MEDS: KCL 10 MEQ IVPB 10 MEQ/100 ML INFUS.BAG IVPB SCH ×3 (00:48→03:04)
[2021-02-13] MEDS: INSULIN SLIDING SCALE (NOVOLOG) 1 VIAL SQ SCH ×4 (06:10→21:27)
[2021-02-13 07:47] LABS: BASO % 3.2 % (0-2.0); EOS % 1.5 % (0-4.5); HEMATOCRIT 37.3 % (32.4-45.2); HEMOGLOBIN 12.7 GM/dl (10.7-15.3); LYMPH % 21.9 % (8-40); MCH 29.5 pg (25.7-33.7); MEAN CELL VOLUME 86.9 fl (80-96); MEAN PLT VOLUME 10.4 fl (7.5-11.1); MONO % 9.2 % (3.8-10.2); NEUT % 64.2 % (42.8-82.8); PLATELET COUNT 106 10^3/uL (134-434); RDW 12.4 % (11.6-15.6); WHITE BLOOD COUNT 7.6 K/mm3 (4.0-10.8)
[2021-02-13 07:54] LABS: ALBUMIN 3.5 g/dl (3.4-5.0); BILIRUBIN,TOTAL 1.1 mg/dl (0.2-1); CALCIUM 13.8 mg/dl (8.5-10); MAGNESIUM 1.5 mg/dL (1.8-2.4); TOT PROT 6.5 g/dl (6.4-8.2)
[2021-02-13] MEDS ORDERED: MAGNESIUM SULF 50% (8.12 MEQ/2 ML-1 GM VIAL) IVPB ONE ×2 (08:33→08:54)
[2021-02-13] MEDS ORDERED: POTASSIUM CHLORIDE TABS 20 MEQ TABLET.ER (FP) PO ONE (09:00)
[2021-02-13] MEDS ORDERED: MAGNESIUM SULFATE IN WATER 2 GM/50 ML IVPB IVPB ONE (09:00)
[2021-02-13] MEDS: LOSARTAN POTASSIUM 50 MG TABLET PO SCH (09:20)
[2021-02-13] MEDS: amLODIPine BESYLATE 10 MG TABLET (FP) PO SCH (09:21)
[2021-02-13] MEDS: POTASSIUM CHLORIDE 10 MEQ in SODIUM CHLORIDE 1,000 ML IV SCH ×3 (09:23→21:25)
[2021-02-13] MEDS: CALCITONIN - SALMON SYNTHETIC 400 UNIT/2 ML VIAL IM SCH ×2 (10:56→21:21)
[2021-02-13] MEDS: APIXABAN 5 MG TABLET PO SCH (21:18)
[2021-02-14] MEDS ORDERED: ACETAMINOPHEN 325 MG TABLET (FP) PO PRN (05:51)
[2021-02-14] MEDS: INSULIN SLIDING SCALE (NOVOLOG) 1 VIAL SQ SCH ×3 (06:36→17:19)
[2021-02-14] MEDS: amLODIPine BESYLATE 10 MG TABLET (FP) PO SCH (09:36)
[2021-02-14] MEDS: APIXABAN 5 MG TABLET PO SCH ×2 (09:36→21:33)
[2021-02-14] MEDS: LOSARTAN POTASSIUM 50 MG TABLET PO SCH (09:36)
[2021-02-14] MEDS: POTASSIUM CHLORIDE 10 MEQ in SODIUM CHLORIDE 1,000 ML IV SCH ×2 (09:37→15:09)
[2021-02-14 10:32] LABS: HEMOGLOBIN 12.3 GM/dl (10.7-15.3)
[2021-02-14 10:33] LABS: HEMATOCRIT 36.9 % (32.4-45.2); MCH 29.4 pg (25.7-33.7); MCHC 33.4 g/dl (32.0-36.0); MEAN PLT VOLUME 11.1 fl (7.5-11.1); PLATELET COUNT 115 10^3/uL (134-434); RBC 4.19 M/mm3 (3.60-5.2); RDW 12.2 % (11.6-15.6); WHITE BLOOD COUNT 6.4 K/mm3 (4.0-10.8)
[2021-02-14 10:35] LABS: ALBUMIN 3.7 g/dl (3.4-5.0); BILIRUBIN,TOTAL 0.7 mg/dl (0.2-1); CALCIUM 8.9 mg/dl (8.5-10); MAGNESIUM 1.3 mg/dL (1.8-2.4)
[2021-02-14] MEDS ORDERED: MAGNESIUM SULF 50% (8.12 MEQ/2 ML-1 GM VIAL) IVPB ONE ×2 (11:24→17:00)
[2021-02-14] MEDS ORDERED: CEFTRIAXONE 1 GM in DEXTROSE 5%-WATER - 50 ML IVPB SCH (11:30)
[2021-02-14] MEDS ORDERED: VANCOMYCIN/WATER BAGS 1,250 MG/250 ML BAG IVPB ONE (11:50)
[2021-02-14 13:12] LABS: PLATELET ESTIMATE SLT DECREASE
[2021-02-14] MEDS ORDERED: VANCOMYCIN HCL 1,250 MG in DEXTROSE 5%-WATER - 250 ML IVPB ONE (13:30)
[2021-02-14] MEDS ORDERED: DEXTROSE 5%-WATER - 50 ML IVPB ONE (15:06)
[2021-02-14] MEDS ORDERED: cefTRIAXone SODIUM 1 GM VIAL ONE (15:06)
[2021-02-14] MEDS: CEFTRIAXONE 1 GM in DEXTROSE 5%-WATER - 50 ML IVPB SCH (15:09)
[2021-02-14] MEDS ORDERED: LOCK ITEM NR ONE (16:11)
[2021-02-14] MEDS ORDERED: MAGNESIUM SULFATE IN WATER 2 GM/50 ML IVPB IVPB ONE (17:00)
[2021-02-14 23:09] LABS: EPITHELIAL CELLS FEW /hpf
[2021-02-15] MEDS: POTASSIUM CHLORIDE 10 MEQ in SODIUM CHLORIDE 1,000 ML IV SCH (01:24)
[2021-02-15] MEDS: INSULIN SLIDING SCALE (NOVOLOG) 1 VIAL SQ SCH ×3 (07:49→10:57)
[2021-02-15] MEDS ORDERED: DEXTROSE 5%-WATER - 50 ML IVPB ONE (09:13)
[2021-02-15] MEDS ORDERED: cefTRIAXone SODIUM 1 GM VIAL ONE (09:13)
[2021-02-15 09:27] LABS: ALBUMIN 3.6 g/dl (3.4-5.0); BILIRUBIN,TOTAL 0.4 mg/dl (0.2-1); CALCIUM 8.2 mg/dl (8.5-10); CREATININE 0.9 mg/dl (0.55-1.3); MAGNESIUM 2.2 mg/dL (1.8-2.4); TOT PROT 7.1 g/dl (6.4-8.2)
[2021-02-15 09:31] LABS: BASO % 0.5 % (0-2.0); EOS % 0.9 % (0-4.5); HEMATOCRIT 36.7 % (32.4-45.2); HEMOGLOBIN 12.5 GM/dl (10.7-15.3); LYMPH % 14.8 % (8-40); MCH 29.9 pg (25.7-33.7); MCHC 34.2 g/dl (32.0-36.0); MEAN CELL VOLUME 87.4 fl (80-96); MEAN PLT VOLUME 10.5 fl (7.5-11.1); MONO % 9.5 % (3.8-10.2); NEUT % 74.3 % (42.8-82.8); PLATELET COUNT 125 10^3/uL (134-434); RDW 12.2 % (11.6-15.6); WHITE BLOOD COUNT 8.3 K/mm3 (4.0-10.8)
[2021-02-15] MEDS: LOSARTAN POTASSIUM 50 MG TABLET PO SCH (09:36)
[2021-02-15] MEDS: amLODIPine BESYLATE 10 MG TABLET (FP) PO SCH (09:36)
[2021-02-15] MEDS: CEFTRIAXONE 1 GM in DEXTROSE 5%-WATER - 50 ML IVPB SCH (09:36)
[2021-02-15 09:37] VITALS: BP 110/61; PULSE 95; TEMP 97.9
[2021-02-15] MEDS: APIXABAN 5 MG TABLET PO SCH (09:37)
[2021-02-15] MEDS ORDERED: CEFTRIAXONE 1 GM in DEXTROSE 5%-WATER - 50 ML IVPB SCH (10:00)
[2021-02-15] MEDS ORDERED: POTASSIUM CHLORIDE TABS 20 MEQ TABLET.ER (FP) PO ONE (10:30)
== END 2021-02-15 12:56 | disposition home or self-care (01) | DRG 640 ==
LOC: FER 12:38 → FM/S 14:56 → UNDOADMIN 02-04 00:42 → FM/S 02-05 18:16
PROVIDERS: ADMIT Internal Medicine; ATTEND Nurse Practitioner Acute Care
PROC: 07DR3ZX Extraction of Iliac Bone Marrow, Percutaneous Approach, Diagnostic (ICD-10-PCS; principal; 2021-02-12)
DX: E83.52 Hypercalcemia (principal); G93.41 Metabolic encephalopathy; N17.9 Acute kidney failure, unspecified; I48.20 Chronic atrial fibrillation, unspecified; N39.0 Urinary tract infection, site not specified; R42 Dizziness and giddiness; I10 Essential (primary) hypertension; E78.5 Hyperlipidemia, unspecified; E83.42 Hypomagnesemia; E11.9 Type 2 diabetes mellitus without complications; R11.10 Vomiting, unspecified; E03.9 Hypothyroidism, unspecified; R19.7 Diarrhea, unspecified; R94.5 Abnormal results of liver function studies; E87.6 Hypokalemia; R63.4 Abnormal weight loss; Z68.27 Body mass index [BMI] 27.0-27.9, adult; B96.20 Unspecified Escherichia coli [E. coli] as the cause of diseases classified elsewhere; B95.2 Enterococcus as the cause of diseases classified elsewhere; B95.1 Streptococcus, group B, as the cause of diseases classified elsewhere; Z88.0 Allergy status to penicillin; R50.9 Fever, unspecified
CPT/HCPCS: 20225; 36415; 70450-TC; 71045-TC-FY; 71046-TC-FY; 71260-TC; 74177-TC; 76705-TC; 77074-TC-FY; 80048; 80053; 80076; 81003; 81015; 82330; 82550; 82784; 82962; 83036; 83735; 83883; 83970; 84100; 84155; 84156; 84157; 84165; 84443; 84484; 85025; 85027; 85610; 85730; 87040; 87077; 87086; 87186; 87899; 88300-TC; 93005; 97116-GP; 97161-GP; 99285-25; C9803; J1644; Q9967; U0003; U0005

== ENCOUNTER 2021-02-20 14:53 | Inpatient (IN) | payer OTHER ==
[2021-02-20] MEDS ORDERED: SODIUM CHLORIDE 2,041 ML IV ONE (15:24)
[2021-02-20] MEDS ORDERED: ACETAMINOPHEN 1000 MG/100 ML VIAL (NON FORMULARY) IVPB ONE (15:31)
[2021-02-20] MEDS ORDERED: ACETAMINOPHEN INJECTION 100 ML IVPB ONE (15:43)
[2021-02-20 16:05] LABS: ACTIVATED PTT 30.8 SECONDS (25.2-36.5)
[2021-02-20 16:10] LABS: INR 2.21 (0.82-1.09); PROTHROMBIN TIME (PATIENT) 24.7 SEC (10.2-13.0)
[2021-02-20 16:13] LABS: BILIRUBIN,TOTAL 1.1 mg/dl (0.2-1); CREATININE 1.2 mg/dl (0.55-1.3); MAGNESIUM 1.3 mg/dL (1.8-2.4); PHOSPHOROUS 1.4 mg/dl (2.5-4.9); TOT PROT 8.3 g/dl (6.4-8.2)
[2021-02-20 16:16] LABS: BASO % 1.2 % (0-2.0); EOS % 0.1 % (0-4.5); HEMATOCRIT 39.6 % (32.4-45.2); HEMOGLOBIN 13.6 GM/dl (10.7-15.3); LYMPH % 8.1 % (8-40); MCH 29.9 pg (25.7-33.7); MCHC 34.2 g/dl (32.0-36.0); MEAN CELL VOLUME 87.3 fl (80-96); MEAN PLT VOLUME 13.9 fl (7.5-11.1); MONO % 7.6 % (3.8-10.2); PLATELET COUNT 230 10^3/uL (134-434); RBC 4.54 M/mm3 (3.60-5.2); RDW 12.8 % (11.6-15.6); WHITE BLOOD COUNT 16.8 K/mm3 (4.0-10.8)
[2021-02-20 16:19] LABS: CALCIUM 6.4 mg/dl (8.5-10)
[2021-02-20] MEDS ORDERED: CALCIUM GLUCONATE 10% - 1,000 MG/10 ML VIAL IVPB ONE (16:25)
[2021-02-20] MEDS ORDERED: CALCIUM GLUCONATE 10% - 1,000 MG/10 ML VIAL ONE (16:33)
[2021-02-20] MEDS ORDERED: CEFTRIAXONE 1,000 MG in DEXTROSE 5%-WATER - 50 ML IVPB ONE (16:36)
[2021-02-20] MEDS ORDERED: VANCOMYCIN 1 GM in D5W (PRE-DOCKED) 1,000 MG/250 ML IVPB ONE (16:36)
[2021-02-20] MEDS ORDERED: VANCOMYCIN 1,000 MG VIAL (RESTRICTED TO ID ONLY) ONE (16:47)
[2021-02-20] MEDS ORDERED: cefTRIAXone SODIUM 1 GM VIAL ONE (16:47)
[2021-02-20 17:44] LABS: LACTIC ACID 2.7 mmol/L (0.4-2.0)
[2021-02-20] MEDS ORDERED: NAPH,MB-DB/K PH,MBDB POWDER PACKET PO ONE (17:46)
[2021-02-20] MEDS ORDERED: MAGNESIUM SULF 50% (8.12 MEQ/2 ML-1 GM VIAL) IVPB ONE (17:46)
[2021-02-20] MEDS ORDERED: SODIUM CHLORIDE 1,000 ML IV SCH (18:15)
[2021-02-20] MEDS ORDERED: MAGNESIUM 1GM/D5W - 1 GM/100 ML IVPB IVPB ONE (18:20)
[2021-02-21] MEDS: APIXABAN 5 MG TABLET PO SCH ×4 (00:11→21:20)
[2021-02-21] MEDS: INSULIN SLIDING SCALE (NOVOLOG) 1 VIAL SQ SCH ×5 (00:11→22:23)
[2021-02-21] MEDS ORDERED: SODIUM CHLORIDE 1,000 ML IV SCH (01:42)
[2021-02-21 02:22] VITALS: BMI 26.6
[2021-02-21 08:06] LABS: BASO % 0.6 % (0-2.0); HEMATOCRIT 31.1 % (32.4-45.2); HEMOGLOBIN 10.3 GM/dl (10.7-15.3); LYMPH % 15.5 % (8-40); MCH 29.6 pg (25.7-33.7); MCHC 33.2 g/dl (32.0-36.0); MEAN CELL VOLUME 89.1 fl (80-96); MEAN PLT VOLUME 12.3 fl (7.5-11.1); MONO % 9.9 % (3.8-10.2); PLATELET COUNT 139 10^3/uL (134-434); RDW 12.5 % (11.6-15.6); WHITE BLOOD COUNT 8.5 K/mm3 (4.0-10.8)
[2021-02-21 08:11] LABS: ALBUMIN 2.9 g/dl (3.4-5.0); BILIRUBIN,TOTAL 0.4 mg/dl (0.2-1); CREATININE 0.7 mg/dl (0.55-1.3); MAGNESIUM 1.3 mg/dL (1.8-2.4); PHOSPHOROUS 1.5 mg/dl (2.5-4.9); TOT PROT 5.9 g/dl (6.4-8.2)
[2021-02-21 08:13] LABS: CALCIUM 5.9 mg/dl (8.5-10)
[2021-02-21] MEDS ORDERED: MAGNESIUM SULF 50% (8.12 MEQ/2 ML-1 GM VIAL) IVPB ONE (08:19)
[2021-02-21] MEDS ORDERED: CALCIUM GLUCONATE 10% - 1,000 MG/10 ML VIAL IVPB ONE ×2 (08:27→17:24)
[2021-02-21] MEDS ORDERED: MAGNESIUM SULFATE IN WATER 2 GM/50 ML IVPB IVPB ONE ×2 (08:45→10:00)
[2021-02-21] MEDS ORDERED: CALCITRIOL 0.25 MCG CAPSULE (FP) PO ONE ×2 (08:45→10:00)
[2021-02-21] MEDS: CALCIUM 500MG/VIT-D 200 UNITS COMBO TABLET (FP) PO SCH ×2 (09:55→21:20)
[2021-02-21] MEDS ORDERED: METOPROLOL TARTRATE 50 MG TABLET (FP) PO SCH (10:00)
[2021-02-21] MEDS ORDERED: CEFTRIAXONE 1 GM in DEXTROSE 5%-WATER - 50 ML IVPB SCH (10:00)
[2021-02-21] MEDS ORDERED: PATIENT'S OWN MEDICATION (NON-FORMULARY) (Cefdinir [Cefdinir] 300 MG Capsule) PO SCH (10:15)
[2021-02-21 10:31] LABS: EPITHELIAL CELLS MODERATE /hpf
[2021-02-21] MEDS: LOSARTAN POTASSIUM 50 MG TABLET PO SCH (10:50)
[2021-02-21] MEDS ORDERED: CALCIUM GLUCONATE 10% - 1,000 MG in DEXTROSE 5%-WATER - 100 ML IVPB ONE (11:00)
[2021-02-21] MEDS ORDERED: CEFPODOXIME PROXETIL 200 MG TABLET [NF] PO SCH (14:00)
[2021-02-21] MEDS ORDERED: VANCOMYCIN 1 GRAM (PRE-DOCKED) 1,000 MG/250 ML BAG IVPB ONE (16:00)
[2021-02-21] MEDS ORDERED: VANCOMYCIN 1 GM in D5W (PRE-DOCKED) 1,000 MG/250 ML IVPB SCH (16:00)
[2021-02-21] MEDS ORDERED: ACETAMINOPHEN 325 MG TABLET (FP) PO ONE (17:19)
[2021-02-21] MEDS ORDERED: PT OWN MED DRAWER 7, Y5N ONE (21:19)
[2021-02-21] MEDS: NAPH,MB-DB/K PH,MBDB POWDER PACKET PO SCH (21:20)
[2021-02-21] MEDS: CEFPODOXIME PROXETIL 200 MG TABLET [NF] PO SCH (21:20)
[2021-02-22] MEDS: NAPH,MB-DB/K PH,MBDB POWDER PACKET PO SCH ×2 (06:21→13:29)
[2021-02-22] MEDS: INSULIN SLIDING SCALE (NOVOLOG) 1 VIAL SQ SCH ×2 (06:23→10:26)
[2021-02-22 08:30] LABS: ALBUMIN 2.8 g/dl (3.4-5.0); BILIRUBIN,TOTAL 0.7 mg/dl (0.2-1); CREATININE 0.7 mg/dl (0.55-1.3); MAGNESIUM 1.4 mg/dL (1.8-2.4)
[2021-02-22 08:40] LABS: CALCIUM 6.9 mg/dl (8.5-10)
[2021-02-22] MEDS: CEFPODOXIME PROXETIL 200 MG TABLET [NF] PO SCH (08:43)
[2021-02-22] MEDS: LOSARTAN POTASSIUM 50 MG TABLET PO SCH (09:18)
[2021-02-22] MEDS: APIXABAN 5 MG TABLET PO SCH (09:18)
[2021-02-22 10:38] VITALS: BP 140/63; PULSE 112; TEMP 97.6
[2021-02-22] MEDS ORDERED: MAGNESIUM SULF 50% (8.12 MEQ/2 ML-1 GM VIAL) IVPB ONE (10:39)
[2021-02-22] MEDS ORDERED: CALCITRIOL 0.25 MCG CAPSULE (FP) PO SCH (10:45)
[2021-02-22] MEDS ORDERED: MAGNESIUM SULFATE IN WATER 2 GM/50 ML IVPB IVPB ONE (10:45)
[2021-02-22] MEDS ORDERED: CALCIUM GLUCONATE 10% - 1,000 MG/10 ML VIAL IVPB ONE (11:45)
== END 2021-02-22 14:50 | disposition home or self-care (01) | DRG 641 ==
LOC: FER 14:53 → FM/S 15:28
PROVIDERS: ADMIT Internal Medicine; ATTEND Nurse Practitioner Acute Care
DX: E83.51 Hypocalcemia (principal); N39.0 Urinary tract infection, site not specified; R53.1 Weakness; E11.9 Type 2 diabetes mellitus without complications; I10 Essential (primary) hypertension; E78.5 Hyperlipidemia, unspecified; I48.91 Unspecified atrial fibrillation; Z79.01 Long term (current) use of anticoagulants; Z88.0 Allergy status to penicillin; E83.42 Hypomagnesemia; M25.511 Pain in right shoulder; E83.39 Other disorders of phosphorus metabolism; E87.6 Hypokalemia; Z79.84 Long term (current) use of oral hypoglycemic drugs
CPT/HCPCS: 36415; 71045-TC-FY; 73030-TC-RT-FY; 80053; 81003; 81015; 82306; 82550; 82962; 83605; 83735; 83970; 84100; 84443; 84484; 85025; 85610; 85730; 87040; 87086; 93005; 97116-GP; 97161-GP; 99285-25; C9803; J0131; U0003; U0005